=== PATIENT | female | born 2000 | race American Indian/Alaskan Native ===

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

== ENCOUNTER 2020-04-11 13:20 | Emergency (ER) | payer SELFPAY ==
[2020-04-11] MEDS ORDERED: predniSONE 20 MG TAB PO ONE (13:50)
[2020-04-11] MEDS ORDERED: IPRATROPIUM/ALBUTEROL SULFATE 3 ML AMPUL.NEB IH ONE (13:50)
[2020-04-11 13:54] VITALS: BP 115/67
[2020-04-11] MEDS ORDERED: KETOROLAC 30 MG/1 ML INJ IV ONE (14:02)
[2020-04-11] MEDS ORDERED: HYDROcodone/ACETAMINOPHEN 5-325 MG TAB PO ONE (14:02)
--- NOTE | 2020-04-11 14:02 | Emergency Department Report ---
ED General Adult HPI - General Chief complaint: Upper Respiratory Infection Stated complaint: COVID SYMPTOMS Time Seen by Provider: 04/11/20 13:49 Source: EMS Mode of arrival: Stretcher Limitations: No Limitations - History of Present Illness Initial comments: Ramona is a 19-year-old female with history of asthma who presents with right chest pain for the past week. She recently recovered from COVID-19 coronavirus infection after being diagnosed 3 weeks ago. 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 She has mild cough. She has generalized malaise. Subjective fever. She just did not feel well. She has sharp persistent chest pain under her right breast which is worse current breathing. She denies leg pain. She denies use of oral contraceptives. Nonproductive cough at this time. -: Gradual, week(s) (1 week of chest pain diagnosed with coronavirus COVID-19 3 weeks ago) Location: chest Severity scale (0 -10): 6 Quality: sharp Consistency: constant Improves with: other (Inspiration) Associated Symptoms: chest pain, cough, malaise - Related Data Previous Rx's Medication Instructions Recorded Last Taken Type Ibuprofen [Motrin 400 MG tab] 400 mg PO Q8H PRN #20 tablet 12/22/16 Unknown Rx Sulfamethoxazole/Trimethoprim 1 each PO BID #10 tablet 12/22/16 Unknown Rx [Bactrim DS TAB] Albuterol INH(or & Nicu Only) 2 puff IH QID PRN #8.5 gram 04/11/20 Unknown Rx [ProAir HFA Inhaler] Prednisone [predniSONE 10 mg 10 mg PO .TAPER #1 tab.ds.pk 04/11/20 Unknown Rx (6-Day Pack, 21 Tabs)] Allergies Allergy/AdvReac Type Severity Reaction Status Date / Time No Known Allergies Allergy Unverified 12/15/16 16:19 ED Review of Systems ROS: Stated complaint: COVID SYMPTOMS Other details as noted in HPI Comment: All other systems reviewed and negative Constitutional: fever, malaise Respiratory: cough, shortness of breath Cardiovascular: chest pain ED Past Medical Hx - Past Medical History Previous Medical History?: Yes Hx Asthma: Yes - Social History Smoking Status: Never Smoker Substance Use Type: None - Medications Home Medications: Home Medications Medication Instructions Recorded Confirmed Last Taken Type Ibuprofen [Motrin 400 MG tab] 400 mg PO Q8H PRN #20 tablet 12/22/16 Unknown Rx Sulfamethoxazole/Trimethoprim 1 each PO BID #10 tablet 12/22/16 Unknown Rx [Bactrim DS TAB] Albuterol INH(or & Nicu Only) 2 puff IH QID PRN #8.5 gram 04/11/20 Unknown Rx [ProAir HFA Inhaler] Prednisone [predniSONE 10 mg 10 mg PO .TAPER #1 tab.ds.pk 04/11/20 Unknown Rx (6-Day Pack, 21 Tabs)] ED Physical Exam - General Limitations: No Limitations General appearance: alert, in no apparent distress, other (Pleasant well- appearing no acute distress) - Head Head exam: Present: atraumatic, normocephalic - Eye Eye exam: Present: normal appearance - ENT ENT exam: Present: mucous membranes moist - Neck Neck exam: Present: normal inspection, full ROM - Respiratory Respiratory exam: Present: normal lung sounds bilaterally. Absent: respiratory distress, wheezes, rales, rhonchi - Cardiovascular Cardiovascular Exam: Present: regular rate, normal rhythm, normal heart sounds. Absent: systolic murmur, diastolic murmur, rubs, gallop - GI/Abdominal GI/Abdominal exam: Present: soft, normal bowel sounds. Absent: distended, tenderness, guarding, rebound - Extremities Exam Extremities exam: Present: normal inspection - Neurological Exam Neurological exam: Present: alert, oriented X3 - Psychiatric Psychiatric exam: Present: normal affect, normal mood - Skin Skin exam: Present: warm, dry, intact, normal color. Absent: rash ED Course Vital Signs 04/11/20 04/11/20 04/11/20 13:52 14:03 14:30 Temperature 98.3 F Pulse Rate 72 Respiratory 13 Rate Blood Pressure 115/67 O2 Sat by Pulse 100 100 Oximetry ED Medical Decision Making - Radiology Data Radiology results: report reviewed, image reviewed Chest 1 view: No acute findings - Medical Decision Making Chest pain for 1 week PERC negative for PE. No evidence of PNA or PTX on CXR. Given reassurance. Nonspecific chest wall pain. Preserved prednisone and albuterol for asthma exacerbation Critical care attestation.: If time is entered above; I have spent that time in minutes in the direct care of this critically ill patient, excluding procedure time. ED Disposition Clinical Impression: Asthma, Chest wall pain Disposition: - TO HOME OR SELFCARE Is pt being admited?: No Does the pt Need Aspirin: No Condition: Stable Instructions: Asthma (ED), Chest Pain (ED) Prescriptions: Prednisone [predniSONE 10 mg (6-Day Pack, 21 Tabs)] 10 mg PO .TAPER #1 tab.ds.pk Albuterol INH(or & Nicu Only) [ProAir HFA Inhaler] 2 puff IH QID PRN #8.5 gram PRN Reason: Shortness Of Breath Referrals: SIVAN SHAW MD [Staff Physician] - 3-5 Days
--- NOTE | 2020-04-11 14:32 | XRay Report ---
CHEST 1 VIEW INDICATION / CLINICAL INFORMATION: dyspnea asthma cough. COMPARISON: None available. FINDINGS: SUPPORT DEVICES: None. HEART / MEDIASTINUM: No significant abnormality. LUNGS / PLEURA: No significant pulmonary or pleural abnormality.. No pneumothorax. ADDITIONAL FINDINGS: No significant additional findings. IMPRESSION: 1. No acute findings. Signer Name: Dev Andrews MD Signed: 04/11/2020 2:28 PM Workstation Name: [id number]
== END 2020-04-11 15:53 | disposition home or self-care (01) ==
LOC: ED 13:20
DX: J45.909 Unspecified asthma, uncomplicated (principal); Z79.899 Other long term (current) drug therapy
CPT/HCPCS: 71045; 96374; 99284; J1885; J7512